=== PATIENT | male | born 1985 | race Caucasian/White ===

== ENCOUNTER 2016-11-10 14:02 | Emergency (ER) | payer BC ==
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
[2016-11-10 14:25] VITALS: BP 125/86; TEMP 97.2; O2SAT 95
== END 2016-11-10 14:48 | disposition home or self-care (01) ==
LOC: ER 14:02
DX: T24.331A Burn of third degree of right lower leg, initial encounter (principal); T79.8XXA Other early complications of trauma, initial encounter; L03.115 Cellulitis of right lower limb; X19.XXXA Contact with other heat and hot substances, initial encounter; Y92.9 Unspecified place or not applicable

== ENCOUNTER 2017-03-08 08:45 | Emergency (ER) | payer BC ==
--- NOTE | 2017-03-08 09:07 | ED.PDOC ---
History of Present Illness - General Chief Complaint: ENT Problem Stated Complaint: sore throat/dental pain Time Seen by Provider: 03/08/17 09:07 Source: patient Exam Limitations: no limitations - History of Present Illness Initial Comments: Nii Leyva 31 y/o male stated that he had dull lower gum pain which radiated to back of his throat for the last 3 days.No fever or chills,no nausea/ vomiting. Timing/Duration: intermittent, other - see hpi EENT Location: dental Prearrival Treatment: no prearrival treatment Presenting Symptoms: gum pain/dental Improving Factors: nothing Worsening Factors: eating Associated Symptoms: other - see hpi Allergies/Adverse Reactions: Allergies NO KNOWN ALLERGY Allergy (Verified 03/08/17 09:15) Home Medications: Ambulatory Orders Acetaminophen W/ Codeine [Tylenol w/Codeine 300-30 mg] 1 tab PO TID PRN #7 tab 03/08/17 Clindamycin HCl 300 mg PO BID #30 cap 03/08/17 Review of Systems - Review of Systems Constitutional: States: no symptoms reported EENTM: States: see HPI, other - dental pain Respiratory: States: no symptoms reported Cardiology: States: no symptoms reported All other Systems: Reviewed and Negative, No Change from Baseline Past Medical History (General) - Patient Medical History Hx Seizures: No Hx Stroke: No Hx Dementia: No Hx Asthma: No Hx of COPD: No Hx Cardiac Disorders: No Hx Congestive Heart Failure: No Hx Pacemaker: No Hx Hypertension: No Hx Thyroid Disease: No Hx Diabetes: No Hx Gastroesophageal Reflux: No Hx Renal Disease: No Hx Cancer: No Hx of HIV: No Hx Hepatitis C: No Hx MRSA: No - Vaccination History Hx Tetanus, Diphtheria Vaccination: No - Social History Hx Tobacco Use: Yes Family Medical History - Family History Mother Family History: No Known Living Status: Still Living Physical Exam - Physical Exam General Appearance: Alert, Comfortable Eye Exam: bilateral normal Ear Exam: bilateral ear: auricle normal, canal normal, TM normal Nasal Exam: normal inspection Throat Exam: dental tenderness - both lower jaw along 3rd molar both sides Neck: non-tender, full range of motion Cardiovascular/Respiratory: regular rate, rhythm, no M/R/G, normal peripheral pulses Abdominal Exam: no organomegaly Neurologic: alert Skin Exam: normal color Progress - Progress Progress: 03/08/17 09:45 Last Vital Signs Temp 97.3 F L 01/28/18 09:15 Pulse 85 03/08/17 09:15 Resp 16 03/08/17 09:15 BP 141/89 03/08/17 09:15 Pulse Ox 96 03/08/17 09:15 Departure - Departure Clinical Impression: Pain due to dental caries, Acute pulpitis Time of Disposition: 09:45 Disposition: Discharge to Home or Self Care Departure Forms: ED Discharge - Pt. Copy, Patient Portal Self Enrollment Instructions: Tooth Abscess, DI for Tooth Decay Prescriptions: Acetaminophen W/ Codeine [Tylenol w/Codeine 300-30 mg] 1 tab PO TID PRN #7 tab PRN Reason: Pain Clindamycin HCl 300 mg PO BID #30 cap Home Medications: Ambulatory Orders Acetaminophen W/ Codeine [Tylenol w/Codeine 300-30 mg] 1 tab PO TID PRN #7 tab 03/08/17 Clindamycin HCl 300 mg PO BID #30 cap 03/08/17 Additional Instructions: NEED TO KEEP APPOINTMENT WITH DENTIST ON Thursday03/10/2017;May Take ALEVE1-2 tablets AM/PM for pain as needed and May use Chloraseptic mouthwash swish inside mouth for 10 seconds then spit out use 3 x a day for dental pain
[2017-03-08 09:18] VITALS: BP 141/89; TEMP 97.3; O2SAT 96
== END 2017-03-08 10:02 | disposition home or self-care (01) ==
LOC: ER 08:45
DX: K02.9 Dental caries, unspecified (principal); K04.01 Reversible pulpitis

== ENCOUNTER 2017-03-27 09:09 | Emergency (ER) | payer BC ==
[2017-03-27 11:04] VITALS: BP 128/77; TEMP 98; O2SAT 98
--- NOTE | 2017-03-27 11:38 | ED.PDOC ---
History of Present Illness - General Chief Complaint: Dental/Mouth Stated Complaint: dental pain Time Seen by Provider: 03/27/17 11:30 Source: patient - History of Present Illness Initial Comments: SWELLING TO THE LEFT CHEEK X TWO DAYS. THE PATIENT ATTEMPTED TO GET A DENTAL APPOINTMENT BUT THE OFFICE WAS CLOSED. Timing/Duration: abrupt EENT Location: facial Prearrival Treatment: no prearrival treatment Improving Factors: nothing Worsening Factors: nothing Associated Symptoms: denies symptoms Allergies/Adverse Reactions: Allergies NO KNOWN ALLERGY Allergy (Verified 03/08/17 09:15) Home Medications: Ambulatory Orders Acetaminophen W/ Codeine [Tylenol w/Codeine 300-30 mg] 1 tab PO TID PRN #7 tab 03/08/17 Clindamycin HCl 300 mg PO BID #30 cap 03/08/17 Clindamycin HCl 300 mg PO Q6HRS #40 cap 03/27/17 Review of Systems - Review of Systems Constitutional: States: no symptoms reported EENTM: States: other - FACIAL SWELLING LEFT SIDE Respiratory: States: no symptoms reported Cardiology: States: no symptoms reported Gastrointestinal/Abdominal: States: no symptoms reported Genitourinary: States: no symptoms reported Musculoskeletal: States: no symptoms reported Skin: States: no symptoms reported Neurological: States: no symptoms reported Past Medical History (General) - Patient Medical History Hx Seizures: No Hx Stroke: No Hx Dementia: No Hx Asthma: No Hx of COPD: No Hx Cardiac Disorders: No Hx Congestive Heart Failure: No Hx Pacemaker: No Hx Hypertension: No Hx Thyroid Disease: No Hx Diabetes: No Hx Gastroesophageal Reflux: No Hx Renal Disease: No Hx Cancer: No Hx of HIV: No Hx Hepatitis C: No Hx MRSA: No Surgical History: no surgical history - Vaccination History Hx Tetanus, Diphtheria Vaccination: No Hx Influenza Vaccination: No - Social History Hx Tobacco Use: Yes Family Medical History - Family History Mother Family History: No Known Living Status: Still Living Physical Exam - Physical Exam General Appearance: Alert, No apparent distress Eye Exam: bilateral normal Nasal Exam: normal inspection Throat Exam: dental tenderness, maxillary swelling - LEFT SIDE, MULTIPLE DENTAL CARIES Neck: non-tender, full range of motion, supple Cardiovascular/Respiratory: regular rate, rhythm, no M/R/G, normal peripheral pulses, no JVD Abdominal Exam: non-tender, no organomegaly, no hernia Neurologic: alert, normal mood/affect, oriented x 3 Skin Exam: normal color Departure - Departure Clinical Impression: Dental abscess Time of Disposition: 11:39 Disposition: Discharge to Home or Self Care Condition: Good Departure Forms: ED Discharge - Pt. Copy, Patient Portal Self Enrollment Instructions: DI for Dental Pain Prescriptions: Clindamycin HCl 300 mg PO Q6HRS #40 cap Home Medications: Ambulatory Orders Acetaminophen W/ Codeine [Tylenol w/Codeine 300-30 mg] 1 tab PO TID PRN #7 tab 03/08/17 Clindamycin HCl 300 mg PO BID #30 cap 03/08/17 Clindamycin HCl 300 mg PO Q6HRS #40 cap 03/27/17
== END 2017-03-27 11:50 | disposition home or self-care (01) ==
LOC: ER 09:09
DX: K04.7 Periapical abscess without sinus (principal)

== ENCOUNTER 2017-05-06 19:47 | Emergency (ER) | payer BC ==
--- NOTE | 2017-05-06 19:58 | ED.PDOC ---
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 Occurred: this morning Pain - Upper Extremity: moderate: Shoulder, right Method of Injury: unknown Improving Factors: rest Worsening Factors: movement Associated Symptoms: see hpi Allergies/Adverse Reactions: Allergies NO KNOWN ALLERGY Allergy (Verified 03/08/17 09:15) Home Medications: Ambulatory Orders Baclofen 20 mg PO BID #20 tab 05/06/17 Diclofenac Sodium [Diclofenac Sodium Dr] 75 mg PO BID #20 tab 05/06/17 Review of Systems - Review of Systems Constitutional: States: no symptoms reported EENTM: States: no symptoms reported Respiratory: States: no symptoms reported Cardiology: States: no symptoms reported Musculoskeletal: States: see HPI Neurological: States: no symptoms reported All other Systems: Reviewed and Negative, No Change from Baseline Past Medical History (General) - Patient Medical History Hx Seizures: No Hx Stroke: No Hx Dementia: No Hx Asthma: No Hx of COPD: No Hx Cardiac Disorders: No Hx Congestive Heart Failure: No Hx Pacemaker: No Hx Hypertension: No Hx Thyroid Disease: No Hx Diabetes: No Hx Gastroesophageal Reflux: No Hx Renal Disease: No Hx Cancer: No Hx of HIV: No Hx Hepatitis C: No Hx MRSA: No Surgical History: no surgical history - Vaccination History Hx Tetanus, Diphtheria Vaccination: No Hx Influenza Vaccination: No - Social History Hx Tobacco Use: Yes Years Tobacco Use: 10 Cigarettes Packs Per Day: 10 Family Medical History - Family History Mother Family History: No Known Living Status: Still Living Hx Family Hypertension: Yes - dad Hx Family Diabetes: Yes - dad Physical Exam - Physical Exam General Appearance: Alert, Comfortable, No apparent distress Eyes, Ears, Nose, Throat Exam: PERRL/EOMI, normal ENT inspection Neck: non-tender, full range of motion, supple Cardiovascular/Respiratory: regular rate, rhythm, no M/R/G, normal peripheral pulses Abdominal Exam: non-tender, no organomegaly Back Exam: no CVA tenderness, no vertebral tenderness Shoulder Exam: limited ROM - painful on external rotation ,flexion and extension right arm Progress - Progress Progress: 05/06/17 20:13 Vital Signs - 8 hr 05/06/17 19:59 Temperature 98.0 F Pulse Rate [lt 88 arm] Respiratory 22 Rate Blood Pressure 150/98 [lt arm] O2 Sat by Pulse 100 Oximetry - EKG/XRAY/CT XRAY: right shoulder-no fracture - no acute abnormality Departure - Departure Clinical Impression: Muscle spasm Rotator cuff strain Qualifiers: Encounter type: initial encounter Laterality: right Qualified Code(s): S46.011A - Strain of muscle(s) and tendon(s) of the rotator cuff of right shoulder, initial encounter Time of Disposition: 20:36 Disposition: Discharge to Home or Self Care Condition: Good Departure Forms: ED Discharge - Pt. Copy, Patient Portal Self Enrollment Instructions: Shoulder Sprain, DI for Shoulder Sprain Prescriptions: Baclofen 20 mg PO BID #20 tab Diclofenac Sodium [Diclofenac Sodium Dr] 75 mg PO BID #20 tab Home Medications: Ambulatory Orders Baclofen 20 mg PO BID #20 tab 05/06/17 Diclofenac Sodium [Diclofenac Sodium Dr] 75 mg PO BID #20 tab 05/06/17 Additional Instructions: Ice pack to affected area 20 minutes 3 x a day during waking hours only to affected area for 5 days;NEED TO SIGN UP WITH PRIMARY MD [phone] for follow up
[2017-05-06] MEDS ORDERED: KETOROLAC TROMETHAMINE INJ 30 MG/ML VIAL IM ONE (20:14)
[2017-05-06] MEDS ORDERED: ORPHENADRINE CITRATE 30 MG/ML AMP IM ONE (20:14)
[2017-05-06] MEDS ORDERED: HYDROcodone 7.5MG/APAP 325MG 1 EA TAB PO ONE (20:15)
[2017-05-06] MEDS ORDERED: BACLOFEN 10 MG TAB PO ONE (20:34)
[2017-05-06] MEDS ORDERED: IBUPROFEN 200 MG TAB PO ONE (20:34)
--- NOTE | 2017-05-06 20:46 | RAD ---
EXAM DESCRIPTION: Cervical Spine,3 Views CLINICAL HISTORY: 31 years Male, pain COMPARISON: None. FINDINGS: There is no evidence of acute fracture or dislocation or destructive bony lesion. Vertebral body and interspace heights and alignment appear maintained as visualized. C7 is underpenetrated on the standard lateral view and a little indistinct on the swimmer's lateral view but grossly intact. There is straightening of the usual cervical lordosis, which could be due to muscle spasm. No significant prevertebral soft tissue swelling is identified. IMPRESSION: Lordotic straightening, which could be due to muscle spasm. Otherwise essentially unremarkable cervical spine. Slightly limited evaluation of C7. Electronically signed by: Red Henley MD 05/06/2017 8:44 PM CDT
--- NOTE | 2017-05-06 20:50 | RAD ---
EXAM DESCRIPTION: Shoulder,Right 2 or More Views CLINICAL HISTORY: 31 years Male, pain COMPARISON: None. FINDINGS: There is no evidence of acute fracture or dislocation or destructive bony lesion. The glenohumeral and acromioclavicular joint spaces appear maintained. Regional soft tissues are unremarkable. IMPRESSION: Unremarkable right shoulder. Electronically signed by: Red Henley MD 05/06/2017 8:47 PM CDT
[2017-05-06 21:27] VITALS: TEMP 97.8
[2017-05-06 21:28] VITALS: BP 136/87; O2SAT 98
== END 2017-05-06 21:30 | disposition home or self-care (01) ==
LOC: ER 19:47
DX: S46.011A Strain of muscle(s) and tendon(s) of the rotator cuff of right shoulder, initial encounter (principal); Z87.891 Personal history of nicotine dependence

== ENCOUNTER 2017-05-18 02:41 | Emergency (ER) | payer BC ==
--- NOTE | 2017-05-18 03:04 | ED.PDOC ---
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 SUDDEN ONSET OF SUB STERNAL CHEST PAIN SINCE 1.30 AM ASSOCIATED WITH TINGLING IN THE LEFT HAND TONIGHT WHILE IN BED HE HAS NEVER HAD SIMILAR PAIN IN THE PAST HE HAS NO FAMILY HISTORY OF CAD NOT A KNOWN DM NO HYPERTENSION DIDLIPIDEMIA HE IS HOWEVER A SMOKER HE HAS NO GI REFLUX HE HAS NO RISK FACTORS FOR DVT THE PAIN IS NOT PLEURITIC - History of Present Illness Timing/Duration: 1/2 hour Severity/Quality: moderate Location: substernal Chest Pain Radiation: no radiation Activities at Onset: none Prior Chest Pain/Cardiac Workup: no prior chest pain Allergies/Adverse Reactions: Allergies NO KNOWN ALLERGY Allergy (Verified 05/18/17 02:51) Home Medications: Ambulatory Orders Baclofen 20 mg PO BID #20 tab 05/06/17 Diclofenac Sodium [Diclofenac Sodium Dr] 75 mg PO BID #20 tab 05/06/17 Past Medical History (General) - Patient Medical History Hx Seizures: No Hx Stroke: No Hx Dementia: No Hx Asthma: No Hx of COPD: No Hx Cardiac Disorders: No Hx Congestive Heart Failure: No Hx Pacemaker: No Hx Hypertension: No Hx Thyroid Disease: No Hx Diabetes: No Hx Gastroesophageal Reflux: No Hx Renal Disease: No Hx Cancer: No Hx of HIV: No Hx Hepatitis C: No Hx MRSA: No Surgical History: no surgical history - Vaccination History Hx Tetanus, Diphtheria Vaccination: No Hx Influenza Vaccination: No - Social History Hx Tobacco Use: Yes Hx Alcohol Use: Yes - social Hx Substance Use: No Family Medical History - Family History Mother Family History: No Known Living Status: Still Living Hx Family Hypertension: Yes - dad Hx Family Diabetes: Yes - dad Physical Exam - Physical Exam General Appearance: Alert, Comfortable Eyes, Ears, Nose, Throat Exam: PERRL/EOMI, normal ENT inspection, TMs normal, pharynx normal Neck: non-tender, full range of motion, supple Respiratory: chest non-tender, lungs clear, normal breath sounds Cardiovascular/Chest: normal peripheral pulses, regular rate, rhythm, no edema, no gallop Gastrointestinal/Abdominal: normal bowel sounds, non tender, soft, no organomegaly Extremity: normal range of motion, non-tender, normal inspection, no pedal edema 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 Copy, Patient Portal Self Enrollment Instructions: DI for Anxiety -- Adult, DI for Chest Pain Home Medications: Ambulatory Orders Baclofen 20 mg PO BID #20 tab 05/06/17 Diclofenac Sodium [Diclofenac Sodium Dr] 75 mg PO BID #20 tab 05/06/17
[2017-05-18] MEDS ORDERED: ASPIRIN (CHEWABLE) 81 MG TAB PO ONE (03:05)
[2017-05-18] MEDS ORDERED: KETOROLAC TROMETHAMINE INJ 30 MG/ML VIAL IV ONE ×2 (03:05)
--- NOTE | 2017-05-18 03:27 | RAD ---
EXAM: AP CHEST RADIOGRAPH CLINICAL INDICATION: Acute chest pain. COMPARISON: None. FINDINGS: Cardiac size and pulmonary vasculature are normal. Lungs are clear. No pleural effusions or pneumothorax. No hilar or mediastinal lymphadenopathy. No mediastinal widening. No extraluminal bowel gas under the hemidiaphragms. Bones are intact on this single view. IMPRESSION: Normal portable AP chest radiograph. Electronically signed by: Wolf Mayberry MD 05/18/2017 3:26 AM CDT
[2017-05-18 05:10] VITALS: O2SAT 96
[2017-05-18 05:57] VITALS: BP 129/79; TEMP 98.4
== END 2017-05-18 05:57 | disposition home or self-care (01) ==
LOC: ER 02:41
DX: R07.9 Chest pain, unspecified (principal); F17.200 Nicotine dependence, unspecified, uncomplicated
CPT/HCPCS: 36415; 71045; 80053; 84484; 85025; 85379; 93005; J1885; J2060

== ENCOUNTER 2017-09-09 10:06 | Emergency (ER) | payer BC ==
--- NOTE | 2017-09-09 10:31 | ED.PDOC ---
History of Present Illness - General Chief Complaint: Problem Time Seen by Provider: 09/09/17 10:11 Source: patient Exam Limitations: no limitations - History of Present Illness Initial Comments: The patient is a 32-year-old male presenting to the emergency room secondary to a few lesions on the right side of the scrotum and a small lesion to the dorsum of his penis that it been present for somewhere between 3 days in a week. All lesions are dry at this point. He is uncertain if there were any blisters or vesicles at any point. We did cause a little bit of pain. No urethral discharge or urinary difficulty. No history of any HSV that he knows of. Timing/Duration: unsure Severity: mild Improving Factors: nothing Worsening Factors: nothing Associated Symptoms: denies symptoms Allergies/Adverse Reactions: Allergies NO KNOWN ALLERGY Allergy (Verified 05/18/17 02:51) Home Medications: Ambulatory Orders Baclofen 20 mg PO BID #20 tab 05/06/17 Diclofenac Sodium [Diclofenac Sodium Dr] 75 mg PO BID #20 tab 05/06/17 Valacyclovir HCl 1 gm PO BID #14 tab 09/09/17 Review of Systems - Review of Systems Constitutional: States: no symptoms reported EENTM: States: no symptoms reported Respiratory: States: no symptoms reported Cardiology: States: no symptoms reported Gastrointestinal/Abdominal: States: no symptoms reported Genitourinary: States: see HPI Musculoskeletal: States: no symptoms reported Skin: States: no symptoms reported Neurological: States: no symptoms reported All other Systems: No Change from Baseline Past Medical History (General) - Patient Medical History Hx Seizures: No Hx Stroke: No Hx Dementia: No Hx Asthma: No Hx of COPD: No Hx Cardiac Disorders: No Hx Congestive Heart Failure: No Hx Pacemaker: No Hx Hypertension: No Hx Thyroid Disease: No Hx Diabetes: No Hx Gastroesophageal Reflux: No Hx Renal Disease: No Hx Cancer: No Hx of HIV: No Hx Hepatitis C: No Hx MRSA: No - Vaccination History Hx Tetanus, Diphtheria Vaccination: No Hx Influenza Vaccination: No - Social History Hx Tobacco Use: Yes Hx Alcohol Use: Yes - social Hx Substance Use: No Family Medical History - Family History Mother Family History: No Known Living Status: Still Living Hx Family Hypertension: Yes - dad Hx Family Diabetes: Yes - dad Physical Exam - Physical Exam General Appearance: Alert, Comfortable, No apparent distress Eye Exam: bilateral normal Ears, Nose, Throat: hearing grossly normal Neck: full range of motion Respiratory: no respiratory distress, no accessory muscle use Cardiovascular/Chest: normal peripheral pulses, no edema Peripheral Pulses: radial,right: 2+, radial,left: 2+ Gastrointestinal/Abdominal: non tender, soft Rectal Exam: other - see history of present illness Back Exam: no CVA tenderness, no vertebral tenderness Extremity: normal range of motion, non-tender, normal inspection, no pedal edema , normal capillary refill 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 It is possible this may be an atypical presentation of jock itch. The patient is going to be empirically placed on Valtrex. [place] needs to be delayed with his for at least a couple weeks until after the rash is cleared. I would recommend both partners in the interim to visit the Public health Department and get comprehensive STD testing to make sure they are not passing any infection back and forth to each other unknowingly over time. if the patient has a recurrence it would be beneficial for him to see his primary care doctor at the onset when testing of the lesions with a PCR swab may prove beneficial for confirmation. ER warnings were given. Departure - Departure Clinical Impression: Scrotal rash Disposition: Discharge to Home or Self Care Condition: Fair Departure Forms: ED Discharge - Pt. Copy, Patient Portal Self Enrollment Instructions: Skin Rash (DC) Diet: regular diet Activity: increase activity as tolerated Prescriptions: Valacyclovir HCl 1 gm PO BID #14 tab Home Medications: Ambulatory Orders Baclofen 20 mg PO BID #20 tab 05/06/17 Diclofenac Sodium [Diclofenac Sodium Dr] 75 mg PO BID #20 tab 05/06/17 Valacyclovir HCl 1 gm PO BID #14 tab 09/09/17 Additional Instructions: the patient is a 32-year-old male presenting to the emergency room secondary to a rash to his scrotum and penis. 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 It is possible this may be an atypical presentation of jock itch. The patient is going to be empirically placed on Valtrex. [place] needs to be delayed with his for at least a couple weeks until after the rash is cleared. I would recommend both partners in the interim to visit the Public health Department and get comprehensive STD testing to make sure they are not passing any infection back and forth to each other unknowingly over time. if the patient has a recurrence it would be beneficial for him to see his primary care doctor at the onset when testing of the lesions with a PCR swab may prove beneficial for confirmation. ER warnings were given.
[2017-09-09 11:13] VITALS: BP 151/101; TEMP 97.4; O2SAT 98
== END 2017-09-09 10:54 | disposition home or self-care (01) ==
LOC: ER 10:06
DX: R21 Rash and other nonspecific skin eruption (principal); Z87.891 Personal history of nicotine dependence

== ENCOUNTER 2017-10-20 06:05 | Emergency (ER) | payer BC ==
[2017-10-20 06:19] VITALS: TEMP 97.9
[2017-10-20] MEDS ORDERED: ALUMINUM & MAGNESIUM HYDROXIDE 30 ML UD PO ONE (06:30)
[2017-10-20] MEDS ORDERED: ALPRAZolam 0.25 MG TAB PO ONE (06:30)
[2017-10-20] MEDS ORDERED: ASPIRIN TABLET 325 MG TAB PO ONE (06:30)
--- NOTE | 2017-10-20 06:33 | ED.PDOC ---
History of Present Illness - General Source: patient Exam Limitations: no limitations - History of Present Illness Initial Comments: the patient is a 32-year-old male presenting to the emergency room with his secondary to substernal chest pain and mild shortness of breath that started this morning when he woke up. He got worse as he was arguing with his . He has no cardiac history. Discomfort is at about a 3 out of 10 currently. No palpitations. He did feel some shortness of breath. No diaphoresis. He does have a significant history of gastroesophageal reflux disease for which she is not taking medications along with significant smoking and a long-standing history of anxiety for which she is also not taking any medications. He was has been seen here previously for chest pain related to an anxiety attack. The patient tells a story with his eyes closed looking down. Timing/Duration: 1 hour Severity: mild Improving Factors: nothing Worsening Factors: nothing Associated Symptoms: chest pain, loss of appetite, malaise, nausea/vomiting, shortness of breath <John Pond - Last Filed: 10/20/17 06:30> <Inder Castillo - Last Filed: 10/20/17 08:10> - General Chief Complaint: Respiratory Problem Stated Complaint: sternal pain, shortness of breath Time Seen by Provider: 10/20/17 06:06 - History of Present Illness Allergies/Adverse Reactions: Allergies NO KNOWN ALLERGY Allergy (Verified 05/18/17 02:51) Home Medications: Ambulatory Orders NK [NK] 10/20/17 Review of Systems - Review of Systems Constitutional: States: no symptoms reported EENTM: States: no symptoms reported Respiratory: States: short of breath. Denies: cough, orthopnea, stridor, wheezing Cardiology: States: chest pain. Denies: edema, palpitations, syncope Gastrointestinal/Abdominal: States: nausea - the patient does report a long- standing history of intermittent nausea and vomiting that goes back several years related to untreated reflux and smoking. No recent changes., vomiting. Denies: constipation, diarrhea Musculoskeletal: States: no symptoms reported Skin: States: no symptoms reported Neurological: States: anxiety Endocrine: States: no symptoms reported All other Systems: No Change from Baseline <John Pond - Last Filed: 10/20/17 06:30> Past Medical History (General) - Patient Medical History Hx Seizures: No Hx Stroke: No Hx Dementia: No Hx Asthma: No Hx of COPD: No Hx Cardiac Disorders: No Hx Congestive Heart Failure: No Hx Pacemaker: No Hx Hypertension: No Hx Thyroid Disease: No Hx Diabetes: No Hx Gastroesophageal Reflux: No Hx Renal Disease: No Hx Cancer: No Hx of HIV: No Hx Hepatitis C: No Hx MRSA: No Surgical History: no surgical history - Vaccination History Hx Tetanus, Diphtheria Vaccination: No Hx Influenza Vaccination: No Hx Pneumococcal Vaccination: No - Social History Hx Tobacco Use: Yes Hx Chewing Tobacco Use: No Hx Alcohol Use: Yes - social Hx Substance Use: No Hx Substance Use Treatment: No Hx Depression: No Hx Physical Abuse: No Hx Emotional Abuse: No Hx Suspected Abuse: No - Female History Patient : No - Triage Comment ED Triage Comment: history or simliar symptoms in the past <John Pond - Last Filed: 10/20/17 06:30> Family Medical History - Family History Mother Family History: No Known Living Status: Still Living Hx Family Hypertension: Yes - dad Hx Family Diabetes: Yes - dad <John Pond - Last Filed: 10/20/17 06:30> Physical Exam - Physical Exam General Appearance: Alert, Anxious, No apparent distress Eye Exam: bilateral normal Ears, Nose, Throat: hearing grossly normal, normal ENT inspection, normal pharynx Neck: full range of motion, supple Respiratory: chest non-tender, lungs clear, normal breath sounds, no respiratory distress, no accessory muscle use Cardiovascular/Chest: normal peripheral pulses, regular rate, rhythm, no edema Peripheral Pulses: radial,right: 2+, radial,left: 2+, dorsalis pedis,right: 2+, dorsalis pedis,left: 2+ Gastrointestinal/Abdominal: non tender - mild epigastric discomfort, soft, other - he is obese Rectal Exam: deferred Back Exam: normal inspection, no CVA tenderness, no vertebral tenderness Extremity: normal range of motion, non-tender, normal inspection, no pedal edema , normal capillary refill 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 There is no disorientation. Skin Exam: normal color Comments: Vital Signs - 24 hr 10/20/17 10/20/17 06:12 06:25 Temperature 97.9 F Pulse Rate [ 86 86 Right] Respiratory 20 20 Rate Blood Pressure 149/95 [Right Arm] O2 Sat by Pulse 98 Oximetry <John Pond - Last Filed: 10/20/17 06:30> Progress - Progress Progress: 10/20/17 06:36 the patient is 32-year-old male with a long-standing history of untreated anxiety and gastroesophageal reflux disease presenting with substernal chest discomfort made worse by arguing with his this morning. The patient has received a dose of aspirin, Maalox and Xanax. Laboratory work and x-ray are pending. EKG is reassuring at this point. Most likely this will be noncardiac chest pain however I cannot say that definitively at this point. the patient appears to be in no distress currently. the duration of his care will be assumed by Dr. Castillo. - Results/Orders Results/Orders: EKG shows normal sinus rhythm. Normal axis. [address]-T segment or T-wave changes consistent with acute ischemia. Normal QT interval. <John Pond - Last Filed: 10/20/17 06:30> - Progress Progress: 10/20/17 07:23 Patient felt better according to she might also have sleep apnea-stating snoring a lot as he slept and sometimes notoced stooped breathing for few seconds.this morning was still sleepy and need to hilton up going to work got anxious felt dizzy and had some chest pains. stated he falls asleep easily. 10/20/17 07:26 - Results/Orders Results/Orders: Discuss test result with patient ekg and blood work noted showing no myocardial injury which was same result in May 2017 when he came for same symptoms Advised importance of follow up with primary Md for further evaluation of chest pains symptoms and reported sleep apnea episodes - EKG/XRAY/CT EKG: Unchanged from - 05/28/2017-NSR-no acute st-t changes XRAY: chest - mild peribronchial thickening;no acute intraabdominal process <Inder Castillo - Last Filed: 10/20/17 08:10> Departure <John Pond - Last Filed: 10/20/17 06:30> - Departure Time of Disposition: 08:02 <Inder Castillo - Last Filed: 10/20/17 08:10> - Departure Clinical Impression: Acute anxiety Chest pain Qualifiers: Chest pain type: unspecified Qualified Code(s): R07.9 - Chest pain, unspecified Disposition: Discharge to Home or Self Care Condition: Fair Departure Forms: ED Discharge - Pt. Copy, Patient Portal Self Enrollment Home Medications: Ambulatory Orders NK [NK] 10/20/17 Additional Instructions: Return to Emergency room as needed;Need to follow up with primary MD 2017 for reported sleep apnea and further evaluation of chest pains symptoms
--- NOTE | 2017-10-20 06:58 | RAD ---
EXAM DESCRIPTION: Abdomen Series CLINICAL HISTORY: 32 years, Male, atypical chest pain COMPARISON: Portable AP view of the chest May 18, 2017 TECHNIQUE: Acute abdominal series FINDINGS: There is mild diffuse peribronchial thickening throughout the lungs bilaterally. There is no focal consolidation or pleural effusion. The heart is normal in size. The mediastinal contours are normal. The bowel gas pattern is normal. There is no evidence of free air. There are no abnormal masses or calcifications. Limited evaluation of the liver, spleen, and kidneys demonstrate no gross abnormalities. The osseous structures are age appropriate. IMPRESSION: 1. Mild peribronchial thickening without focal consolidation, likely representing viral or atypical infectious process. 2. No acute intraabdominal process. Electronically signed by: Sandra Rodgers MD 10/20/2017 6:57 AM CDT Workstation: [id number]
[2017-10-20 08:20] VITALS: BP 134/89; O2SAT 99
== END 2017-10-20 08:20 | disposition home or self-care (01) ==
LOC: ER 06:05
DX: R07.2 Precordial pain (principal); F41.9 Anxiety disorder, unspecified; R06.02 Shortness of breath; R11.2 Nausea with vomiting, unspecified; K21.9 Gastro-esophageal reflux disease without esophagitis; F17.200 Nicotine dependence, unspecified, uncomplicated

== ENCOUNTER 2017-11-19 05:10 | Emergency (ER) | payer BC ==
[2017-11-19] MEDS ORDERED: KETOROLAC TROMETHAMINE INJ 30 MG/ML VIAL IM ONE (05:34)
[2017-11-19] MEDS ORDERED: DEXAMETHASONE INJ 4 MG/ML VIAL IM ONE (05:34)
[2017-11-19] MEDS ORDERED: ORPHENADRINE CITRATE 30 MG/ML AMP IM ONE (05:34)
[2017-11-19] MEDS ORDERED: HYDROCOD/APAP 7.5/325 (ER DISP) #3 TAB PO ONE (05:35)
--- NOTE | 2017-11-19 05:39 | ED.PDOC ---
History of Present Illness - General Chief Complaint: Back Pain or Injury Stated Complaint: back pain Time Seen by Provider: 11/19/17 05:30 Source: patient Exam Limitations: no limitations - History of Present Illness Initial Comments: Nii Leyva 32 y/o male stated he drove to back and forth yesterday and had onset of sharp low back pains radiating to back of his left thigh on arrival home aggravated by sitting and laying down.No bowel or bladder dysfunction,no numbness no weakness,no fever . Timing/Duration: days - 2 Quality/Severity: sharpness Back Pain Location: lumbar spine Back Pain Radiation: lower legs - left Method of Injury/Prior Injury: other - NO INJURY Improving Factors: rest Worsening Factors: other - see hpi Associated Symptoms: denies symptoms Allergies/Adverse Reactions: Allergies NO KNOWN ALLERGY Allergy (Verified 05/18/17 02:51) Home Medications: Ambulatory Orders Acetamin W/Cod #3 Tab [Tylenol w/CODEINE #3] 1 ea PO TID PRN #3 tab 11/19/17 Baclofen 20 mg PO BID #14 tab 11/19/17 predniSONE 20 mg PO DAILY 7 Days #7 tab 11/19/17 Review of Systems - Review of Systems Constitutional: States: no symptoms reported EENTM: States: no symptoms reported Respiratory: States: no symptoms reported Cardiology: States: no symptoms reported Gastrointestinal/Abdominal: States: no symptoms reported Musculoskeletal: States: back pain Neurological: States: no symptoms reported Past Medical History (General) - Patient Medical History Hx Seizures: No Hx Stroke: No Hx Dementia: No Hx Asthma: No Hx of COPD: No Hx Cardiac Disorders: No Hx Congestive Heart Failure: No Hx Pacemaker: No Hx Hypertension: No Hx Thyroid Disease: No Hx Diabetes: No Hx Gastroesophageal Reflux: No Hx Renal Disease: No Hx Cancer: No Hx of HIV: No Hx Hepatitis C: No Hx MRSA: No Surgical History: no surgical history - Vaccination History Hx Tetanus, Diphtheria Vaccination: No Hx Influenza Vaccination: No Hx Pneumococcal Vaccination: No - Social History Hx Tobacco Use: Yes Hx Chewing Tobacco Use: No Hx Alcohol Use: Yes - social Hx Substance Use: No Hx Substance Use Treatment: No Hx Depression: No Hx Physical Abuse: No Hx Emotional Abuse: No Hx Suspected Abuse: No - Female History Patient : No Family Medical History - Family History Mother Living Status: Still Living Hx Family Hypertension: Yes - dad Hx Family Diabetes: Yes - dad Physical Exam - Physical Exam General Appearance: Alert, Comfortable, No apparent distress Eyes, Ears, Nose, Throat Exam: normal ENT inspection Neck Exam: non-tender, full range of motion, normal alignment, normal inspection Cardiovascular/Respiratory: regular rate, rhythm, no M/R/G, normal peripheral pulses Peripheral Pulses: radial,right: 2+, radial,left: 2+ Gastrointestinal/Abdominal: non tender, soft, no organomegaly Back Exam: no CVA tenderness, no vertebral tenderness Extremity Exam: no evidence of injury, normal range of motion, non-tender, no pedal edema Neurologic: no motor/sensory deficits, oriented x 3, other - DTR-knee jerk 2 + bilaterally;negative SLR bilaterally Skin Exam: normal color, warm/dry Progress - Progress Progress: 11/19/17 06:03 Vital Signs - 8 hr 11/19/17 05:36 Temperature 98.2 F Pulse Rate [ 84 left back] Respiratory 18 Rate Blood Pressure 142/102 [Right Arm] O2 Sat by Pulse 99 Oximetry - EKG/XRAY/CT XRAY: lumbar spine-no acute abnormalities Departure - Departure Clinical Impression: Back pain with left-sided radiculopathy Time of Disposition: 06:05 Disposition: Discharge to Home or Self Care Condition: Fair Departure Forms: ED Discharge - Pt. Copy, Patient Portal Self Enrollment Instructions: DI for Back Pain With Sciatica Prescriptions: Acetamin W/Cod #3 Tab [Tylenol w/CODEINE #3] 1 ea PO TID PRN #3 tab PRN Reason: Pain Baclofen 20 mg PO BID #14 tab predniSONE 20 mg PO DAILY 7 Days #7 tab Home Medications: Ambulatory Orders Acetamin W/Cod #3 Tab [Tylenol w/CODEINE #3] 1 ea PO TID PRN #3 tab 11/19/17 Baclofen 20 mg PO BID #14 tab 11/19/17 predniSONE 20 mg PO DAILY 7 Days #7 tab 11/19/17 Additional Instructions: Follow up with primary Md call office today 19 November 2017
--- NOTE | 2017-11-19 05:58 | RAD ---
EXAM: Three view(s) of the lumbar spine. INDICATION: Pain, lumbar spine. COMPARISON: None. FINDINGS: Alignment: Intact. Fracture: No acute compression fracture or subluxation. IMPRESSION: 1. No acute compression fracture. Electronically signed by: Hawk Romero MD 11/19/2017 5:57 AM CDT Workstation: [id number]
[2017-11-19 07:01] VITALS: BP 128/91; TEMP 98.1; O2SAT 97
== END 2017-11-19 06:20 | disposition home or self-care (01) ==
LOC: ER 05:10
DX: M54.16 Radiculopathy, lumbar region (principal); Z87.891 Personal history of nicotine dependence

== ENCOUNTER 2018-12-02 06:37 | Emergency (ER) | payer BC, OTHER ==
[2018-12-02 06:49] VITALS: O2SAT 99
[2018-12-02] MEDS ORDERED: SODIUM CHLORIDE 0.9% 1000ML 1,000 ML IVS PRN (06:50)
[2018-12-02] MEDS ORDERED: SODIUM CHLORIDE 0.9% (FLUSH) 10 ML SYG IV PRN (06:50)
[2018-12-02] MEDS ORDERED: ONDANSETRON INJ 4 MG/2 ML VIAL IV ONE (06:50)
--- NOTE | 2018-12-02 07:00 | ED.PDOC ---
History of Present Illness - General Chief Complaint: GI Problem Stated Complaint: n/v Time Seen by Provider: 12/02/18 06:49 Source: patient - History of Present Illness Initial Comments: 33 yo male who presents with cc of vomiting and diarrhea. Onset yesterday and persistent, reports 2 episodes of NBNB emesis and 1 episode of watery diarrhea yesterday and another 1 episode of each this morning. Reports intermittent moderate generalized abdominal pains which come and go with episodes. No meds tried at home for relief. Reports subjective fever yesterday. Also reports mild intermittent dry cough, mild sore throat. Denies any urinary sx's. No known recent sick contacts. No hx of abdominal surgeries. Allergies/Adverse Reactions: Allergies NO KNOWN ALLERGY Allergy (Verified 12/02/18 06:59) Home Medications: Ambulatory Orders Ondansetron Odt [Zofran ODT] 8 mg PO Q8HR #10 tab 12/02/18 Review of Systems - Review of Systems Review of Systems: 12/02/18 07:01 See HPI. All other symptoms negative. Past Medical History (General) - Patient Medical History Hx Seizures: No Hx Stroke: No Hx Dementia: No Hx Asthma: No Hx of COPD: No Hx Cardiac Disorders: No Hx Congestive Heart Failure: No Hx Pacemaker: No Hx Hypertension: No Hx Thyroid Disease: No Hx Diabetes: No Hx Gastroesophageal Reflux: No Hx Renal Disease: No Hx Cancer: No Hx of HIV: No Hx Hepatitis C: No Hx MRSA: No - Vaccination History Hx Tetanus, Diphtheria Vaccination: No Hx Influenza Vaccination: No Hx Pneumococcal Vaccination: No - Social History Hx Tobacco Use: Yes Hx Chewing Tobacco Use: No Hx Alcohol Use: Yes - social Hx Substance Use: No Hx Substance Use Treatment: No Hx Depression: No Hx Physical Abuse: No Hx Emotional Abuse: No Hx Suspected Abuse: No - Female History Patient : No Family Medical History - Family History Mother Family History: No Known Living Status: Still Living Hx Family Hypertension: Yes - dad Hx Family Diabetes: Yes - dad Physical Exam - Physical Exam General Appearance: Alert, Comfortable, No apparent distress Eye Exam: bilateral normal Ears, Nose, Throat: hearing grossly normal, normal ENT inspection, normal pharynx Neck: non-tender, full range of motion, supple Respiratory: chest non-tender, lungs clear, normal breath sounds, no respiratory distress Cardiovascular/Chest: normal peripheral pulses, regular rate, rhythm, no edema, no murmur Gastrointestinal/Abdominal: normal bowel sounds, non tender, soft, no organomegaly Back Exam: normal inspection, no CVA tenderness Extremity: normal range of motion, non-tender, normal inspection Neurologic: no motor/sensory deficits, alert, normal mood/affect, oriented x 3 Skin Exam: normal color, warm/dry Lymphatic: no adenopathy Progress - Progress Progress: 12/02/18 07:02 Nausea, vomiting, diarrhea -suspect acute gastroenteritis. Consider also acute pancreatitis vs bacterial GE/colitis vs other -obtain labs, place PIV, 1 L NS bolus, Zofran 8 mg IV 12/02/18 07:43 -Labs reveal mild AST/ALT elevation, likely from acute illness/GE. Pt has remained stable, remainder of labs pretty unremarkable. -Discussed dx of acute GE & treatment plan with rest, OTC meds. Dc home in good condition, return warnings discussed. F/u with PCP PRN. Rigoberto Marroquin MD Billing #[id number] Departure - Departure Clinical Impression: Gastroenteritis Time of Disposition: 07:45 Disposition: Discharge to Home or Self Care Condition: Fair Departure Forms: ED Discharge - Pt. Copy, Patient Portal Self Enrollment Instructions: Viral Gastroenteritis, Adult (DC) Referrals: HARRIS ALMARAZ IV, MANAGER CARE MANAGEMENT [Primary Care Provider] - 1-2 Weeks Prescriptions: Ondansetron Odt [Zofran ODT] 8 mg PO Q8HR #10 tab Home Medications: Ambulatory Orders Ondansetron Odt [Zofran ODT] 8 mg PO Q8HR #10 tab 12/02/18
[2018-12-02 18:18] VITALS: BP 129/85; TEMP 97
== END 2018-12-02 07:35 | disposition home or self-care (01) ==
LOC: ER 06:37
DX: K52.9 Noninfective gastroenteritis and colitis, unspecified (principal); Z87.891 Personal history of nicotine dependence
CPT/HCPCS: 36415; 80048; 80076; 81001; 83690; 85025; 96374; 99284; J2405; J7030

== ENCOUNTER 2019-02-22 23:52 | Emergency (ER) | payer OTHER ==
--- NOTE | 2019-02-23 00:44 | RAD ---
EXAM: XR Chest, 2 Views CLINICAL HISTORY: The patient is 33 years old and is Male; cough TECHNIQUE: Frontal and lateral views of the chest. COMPARISON: Chest radiograph from 05/18/2017 FINDINGS: LUNGS: Unremarkable. No consolidation. PLEURAL SPACE: Unremarkable. No pneumothorax. HEART: No significant enlargement of the cardiac silhouette. MEDIASTINUM: Unremarkable. BONES/JOINTS: No acute osseous findings. IMPRESSION: No acute findings visualized in the chest. Electronically signed by: Nory Swain MD 02/23/2019 12:42 AM [facility]UST
--- NOTE | 2019-02-23 01:03 | ED.PDOC ---
History of Present Illness - General Chief Complaint: ENT Problem Stated Complaint: cough, sore throat Time Seen by Provider: 02/23/19 00:18 Source: patient, RN notes reviewed, Vital Signs reviewed Exam Limitations: no limitations - History of Present Illness Initial Comments: Patient is a 33-year-old white male who presents with complaints of cough, sore throat and body aches for the last few weeks. This is worsened significantly over the last 3 to 5 days. Cough is nonproductive except intermittently. When it is productive he states that he spits up a large gob of thick green phlegm. Additionally patient has had yellowish drainage from his nose for the last few days. Family has been sick for the last week and they were diagnosed with the flu but he states he did not get it. Cough is worse with deep inspiration. Additionally, patient has pain along the sternal borders with coughing but not with deep breath. The pain is sharp and stabbing in nature. Nothing improves the cough or the chest pain except shallow breathing. Severity: moderate Improving Factors: rest Worsening Factors: other - Coughing. Associated Symptoms: chest pain, cough, malaise Allergies/Adverse Reactions: Allergies NO KNOWN ALLERGY Allergy (Verified 12/02/18 06:59) Home Medications: Ambulatory Orders Guaifenesin-Codeine [Guaifenesin AC] 10 ml PO Q6H #120 ml 02/23/19 Hydrochlorothiazide 25 mg PO 02/23/19 Methylprednisolone [Medrol Dose Doe] 4 mg PO DAILY 6 Days #21 tab 02/23/19 Review of Systems - Review of Systems Constitutional: States: see HPI, chills, malaise EENTM: States: see HPI - Scratchy sore throat., nose congestion, throat pain. Denies: ear pain, ear discharge Respiratory: States: see HPI, cough. Denies: orthopnea, wheezing Cardiology: States: chest pain - Sternal, nonradiating, only with cough. Gastrointestinal/Abdominal: States: no symptoms reported Genitourinary: States: no symptoms reported Musculoskeletal: States: no symptoms reported Skin: States: no symptoms reported Neurological: States: no symptoms reported Endocrine: States: no symptoms reported Hematologic/Lymphatic: States: no symptoms reported All other Systems: Reviewed and Negative Past Medical History (General) - Patient Medical History Hx Seizures: No Hx Stroke: No Hx Dementia: No Hx Asthma: No Hx of COPD: No Hx Cardiac Disorders: No Hx Congestive Heart Failure: No Hx Pacemaker: No Hx Hypertension: Yes Hx Thyroid Disease: No Hx Diabetes: No Hx Gastroesophageal Reflux: No Hx Renal Disease: No Hx Cancer: No Hx of HIV: No Hx Hepatitis C: No Hx MRSA: No Surgical History: no surgical history - Vaccination History Hx Tetanus, Diphtheria Vaccination: No Hx Influenza Vaccination: No Hx Pneumococcal Vaccination: No - Social History Hx Tobacco Use: Yes Hx Chewing Tobacco Use: No Hx Alcohol Use: Yes - social Hx Substance Use: No Hx Substance Use Treatment: No Hx Depression: No Hx Physical Abuse: No Hx Emotional Abuse: No Hx Suspected Abuse: No - Female History Patient : No - Triage Comment ED Triage Comment: cough for past 3 weeks, sore throat for past week Family Medical History - Family History Mother Family History: No Known Living Status: Still Living Hx Family Hypertension: Yes - dad Hx Family Diabetes: Yes - dad Physical Exam - Physical Exam General Appearance: Alert, Comfortable, Well Developed, Well Hydrated, Well Nourished Eye Exam: bilateral normal Ears, Nose, Throat: hearing grossly normal, normal pharynx Neck: non-tender, full range of motion, supple, normal inspection Respiratory: chest non-tender, lungs clear, normal breath sounds, no respiratory distress, no accessory muscle use Cardiovascular/Chest: normal peripheral pulses, regular rate, rhythm, no edema, no gallop Gastrointestinal/Abdominal: normal bowel sounds, non tender, soft, no organomegaly, no pulsatile mass Back Exam: normal inspection, no CVA tenderness, no vertebral tenderness Extremity: normal range of motion, non-tender, normal inspection 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 02/23/19 01:21 Patient's work-up was negative, therefore I suspect a viral upper respiratory tract infection. Will discharge patient home with a prescription for guaifenesin AC and a Medrol Dosepak. I have discussed this plan of care with the patient he voices understanding and agreement and requests a work note. Jhon Murphy M.D. #[id number] - Results/Orders Results/Orders: 02/23/19 00:15 STREP A SCREEN CULTURE Stat Laboratory Results - last 24 hr 02/23/19 00:15 Group A Strep Rapid Negative Influenza a and B is negative. R Chest, 2 Views CLINICAL HISTORY: The patient is 33 years old and is Male; cough TECHNIQUE: Frontal and lateral views of the chest. COMPARISON: Chest radiograph from 05/18/2017 FINDINGS: LUNGS: Unremarkable. No consolidation. PLEURAL SPACE: Unremarkable. No pneumothorax. HEART: No significant enlargement of the cardiac silhouette. MEDIASTINUM: Unremarkable. BONES/JOINTS: No acute osseous findings. IMPRESSION: No acute findings visualized in the chest. 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 Copy, Patient Portal Self Enrollment Instructions: Viral Upper Respiratory Infection, Adult (DC) Referrals: HARRIS ALMARAZ IV, RESIDENTIAL SUBCONTRACTOR [Primary Care Provider] - 1 Week Prescriptions: Guaifenesin-Codeine [Guaifenesin AC] 10 ml PO Q6H #120 ml Methylprednisolone [Medrol Dose Doe] 4 mg PO DAILY 6 Days #21 tab Home Medications: Ambulatory Orders Guaifenesin-Codeine [Guaifenesin AC] 10 ml PO Q6H #120 ml 02/23/19 Hydrochlorothiazide 25 mg PO 02/23/19 Methylprednisolone [Medrol Dose Doe] 4 mg PO DAILY 6 Days #21 tab 02/23/19
[2019-02-23 01:34] VITALS: BP 119/87; TEMP 97.4; O2SAT 98
== END 2019-02-23 01:32 | disposition home or self-care (01) ==
LOC: ER 23:52
DX: J06.9 Acute upper respiratory infection, unspecified (principal); I10 Essential (primary) hypertension; Z87.891 Personal history of nicotine dependence